=== PATIENT | female | born 1950 | race Caucasian/White ===

== ENCOUNTER → 2017-01-07 | Outpatient (CLI) | payer MEDICARE ==
--- NOTE | 2017-01-07 18:20 | WWHP ---
DATE OF SERVICE: 01/07/17 CHIEF COMPLAINT: The patient is here for her routine gynecological exam and mammogram. HISTORY OF PRESENT ILLNESS: This is a 66-year-old G2, P2, 0, 0, 1 with an LMP of 2009. The patient is without gynecological complaints. PAST MEDICAL HISTORY: Chronic hypertension, pre-diabetes and seasonal allergies. Medications: 1. Benicar 40 mg daily. 2. Aspirin 81 mg daily. 3. Zyrtec one daily. 4. Vitamin D 5000 units daily. ALLERGIES: No known drug allergies. 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 SOCIAL HISTORY: She denies tobacco, and has 0 to 2 alcoholic drinks per month. 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 FAMILY HISTORY: Unchanged from 2016 H&P. REVIEW OF SYSTEMS: Weight has been stable. She denies respiratory, cardiac or GI problems. She denies maltreatment or falling. : She does not have significant problems with urinary leakage. PHYSICAL EXAM: Blood pressure 117/76. Height 5 feet 3 inches. Weight 185 pounds. Temperature 98.0. Pulse 84. This is a well developed, heavy set white female who is alert and oriented times three in no acute distress. HEENT : is within normal limits. Neck is supple without mass or thyromegaly. Chest and lungs clear to auscultation. Heart is regular rate and rhythm. Breasts: Without mass or discharge. Axillary exam is negative for adenopathy. Back negative for CVA tenderness. Abdomen soft, nontender without palpable masses. Pelvic exam, external genitalia reveals mild atrophy without lesions. Vagina reveals mild atrophy without lesions. The cervix appears nulliparous and slightly stenotic secondary to atrophy. There is no evidence of prolapse. Uterus is mid position, non-gravid size and nontender. There are no palpable adnexal masses or tenderness. Rectovaginal exam negative for mass or tenderness. Negative for occult blood. Extremities nontender. IMPRESSION: A 66-year-old menopausal female with normal gynecological exam. PLAN: 1. Pap smear was performed. 2. Self breast examination was discussed. 3. Mammogram will be done today. 4. Bone density testing was done earlier this month through her primary care physician and results are pending. I have asked her to try to have a copy of this sent to me if possible. 5. Osteoporosis prevention was discussed. 6. She will return in one year. MEDARDO
--- NOTE | 2017-01-09 09:39 | MM ---
Reason for exam: screening (asymptomatic). Last mammogram was performed 1 year ago. History: Patient is postmenopausal and had first child at age 37. 2 benign excisional biopsies of the left breast. Physical Findings: A clinical breast exam by your physician is recommended on an annual basis and results should be correlated with mammographic findings. MG 3D Screening Mammo W/Cad Bilateral CC and MLO view(s) were taken. Prior study comparison: January 02, 2016, bilateral MG screening mammo w CAD. July 03, 2015, left breast MG 3d diag mammo w/cad LT. December 29, 2014, left breast MG work up mamm w CAD LT. The breast tissue is heterogeneously dense. This may lower the sensitivity of mammography. Finding #1: There is a 8 mm oval mass in the anterior, central position of the right breast. Finding #2: There are typically benign round calcifications in both breasts. 8mm round mass posterior outer left breast. New finding since January 02, 2016, July 03, 2015, and December 29, 2014. ASSESSMENT: Incomplete: need additional imaging evaluation, BI-RAD 0 RECOMMENDATION: Ultrasound of both breasts. [facility] will attempt to contact patient to return for ultrasound.
== END | disposition home or self-care (01) ==
LOC: WWCWWP 08:20
PROVIDERS: ATTEND Obstetrics & Gynecology
DX: Z12.31 Encounter for screening mammogram for malignant neoplasm of breast (principal)
CPT/HCPCS: 77063; G0202

== ENCOUNTER → 2017-01-22 | Outpatient (CLI) | payer MEDICARE ==
--- NOTE | 2017-01-22 08:32 | USB ---
Reason for exam: additional evaluation requested from abnormal screening. History: Patient is postmenopausal and had first child at age 37. 2 benign excisional biopsies of the left breast. Physical Findings: Nurse Summary: all soft, nodular, movable (nurse ts). US Breast Workup UMU Right breast ultrasound includes all four quadrants, the retroareolar region and axilla. Finding demonstrates a 0.8 x 0.6 x 0.4cm cystic lesion at 9 o'clock and a 0.5 x 0.7 x 0.4cm cystic lesion at the posterior nipple. Left breast ultrasound includes all four quadrants, the retroareolar region and axilla. Finding demonstrates a 0.5 x 0.5 x 0.4cm hypoechoic lesion at 1 o'clock. These results were verbally communicated with the patient and result sheet given to the patient on 01/22/17. ASSESSMENT: Probably benign, BI-RAD 3 RECOMMENDATION: Ultrasound of both breasts in 6 months.
== END | disposition home or self-care (01) ==
LOC: RADUSWWP 06:49
PROVIDERS: ATTEND Obstetrics & Gynecology
DX: R92.8 Other abnormal and inconclusive findings on diagnostic imaging of breast (principal)

== ENCOUNTER → 2017-07-23 | Outpatient (CLI) | payer MEDICARE ==
--- NOTE | 2017-07-23 08:12 | USB ---
Reason for exam: follow-up at short interval from prior study. History: Patient is postmenopausal and had first child at age 37. 2 benign excisional biopsies of the left breast. Physical Findings: Nurse did not find any significant physical abnormalities on exam. US Breast BILAT Right breast ultrasound includes all four quadrants, the retroareolar region and axilla. Finding demonstrates a 4 x 2 x 7mm oval, cystic lesion at 11 o'clock. The previous cyst 9 o'clock and subareolar right breast are no longer seen. Left breast ultrasound includes all four quadrants, the retroareolar region and axilla. Finding demonstrates a 6 x 4 x 5mm oval, cystic lesion at 1 o'clock seen on previous but now clearly cystic and a 5mm oval lymph node at 2 o'clock. 6 month follow up mammogram recommended to reassess the initially questioned mammographic finding. These results were verbally communicated with the patient and result sheet given to the patient on 07/23/17. ASSESSMENT: Probably benign, BI-RAD 3 RECOMMENDATION: Follow-up diagnostic mammogram of both breasts in 6 months.
== END | disposition home or self-care (01) ==
LOC: RADUSWWP 06:52
PROVIDERS: ATTEND Obstetrics & Gynecology
DX: R92.8 Other abnormal and inconclusive findings on diagnostic imaging of breast (principal)

== ENCOUNTER → 2018-01-13 | Outpatient (CLI) | payer MEDICARE ==
[2018-01-13 09:40] VITALS: BP 109/71; PULSE 77; TEMP 97.9; BMI 30.1
--- NOTE | 2018-01-13 10:26 | P.HPOB ---
History of Present Illness H&P Date: 01/13/18 Chief Complaint: The patient is here for her routine gynecologic exam and mammogram. This is a 67-year-old with an LMP of 2009. The patient is without gynecologic complaints and denies any postmenopausal bleeding. Review of Systems She has lost about 15 pounds over the last year. She attributes this to her diabetic diet after being diagnosed with type II diabetes. She denies respiratory or cardiac problems. G.I.: she has had occasional gas pains which she attributes to her diabetes medication. She denies maltreatment or problems with falling. : she denies any significant problems with urinary leakage. Past Medical History Past Medical History: Diabetes Mellitus (Type II diabetes), Hypertension, Osteoarthritis (OA) Additional Past Medical History / Comment(s): Vitamin D deficiency, anemia, allergic rhinitis, gastritis, focal asymetric breat tissue. 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 History of Any Multi-Drug Resistant Organisms: None Reported Past Surgical History: Breast Surgery (Biopsy times 2), Section (x2) Additional Past Surgical History / Comment(s): Colonoscopy 2010. 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 - Past Family History Brother(s) Family Medical History: Cancer (Multiple myeloma) Daughter(s) Additional Family Medical History / Comment(s): Hydrocephaly and at age 3. Mother Family Medical History: Myocardial Infarction ([place]) Father Family Medical History: Diabetes Mellitus Medications and Allergies Home Medications Medication Instructions Recorded Confirmed Type Aspirin 81 mg PO DAILY 12/11/17 01/13/18 History Canagliflozin/Metformin HCl 1 tab PO DAILY 12/11/17 01/13/18 History [Invokamet 50-1,000 mg Tablet] Cetirizine HCl [Zyrtec] 10 mg PO DAILY 12/11/17 01/13/18 History Cholecalciferol [Vitamin D3] 1 tab PO DAILY 12/11/17 01/13/18 History Olmesartan [Benicar] 40 mg PO DAILY 12/11/17 01/13/18 History Allergies Allergy/AdvReac Type Severity Reaction Status Date / Time No Known Allergies Allergy Verified 01/13/18 09:35 Exam Vital Signs Temp Pulse BP 01/13/18 09:36 97.9 F 77 109/71 Intake and Output 01/12/18 01/13/18 01/13/18 22:59 06:59 14:59 Other: Weight 77.111 kg Height 5'3", BMI 30.1. This is a well-developed well-nourished white female who is alert and oriented times 3 in no acute distress. HEENT: Within normal limits. NECK: Supple without mass or thyromegaly. CHEST AND LUNGS: Clear to auscultation. HEART: Regular rate and rhythm. BREASTS: Are without mass or discharge. AXILLARY EXAM: Negative for adenopathy. BACK: Negative for CVA tenderness. ABDOMEN: Soft, nontender, without palpable masses. PELVIC EXAM: Normal external genitalia with mild atrophy. Cervix and vagina appear normal with mild atrophy. There is no unusual discharge. There is no evidence of prolapse. The uterus is midposition, nongravid size and nontender. There are no palpable adnexal masses or tenderness. RECTAL EXAM: rectovaginal exam is negative for mass or tenderness and is negative for occult blood. EXTREMITIES: Nontender. IMPRESSION: 1. 67 year old menopausal female with normal gynecologic exam. PLAN: 1. Pap smear was deferred since she had a normal one last year. 2. Self breast awareness was discussed with the patient. 3. Diagnostic mammogram will be done today because of her abnormal one in 2017. 4. Osteoporosis prevention was discussed. She has brought in her bone density report [facility] [place] The bone density was normal. We will plan on repeating this again in the year 2023. 5. She does get flu shots in the fall. 6. She will return in one year.
--- NOTE | 2018-01-13 11:53 | MM ---
Reason for exam: additional evaluation requested from prior study. Last mammogram was performed 1 year ago. History: Patient is postmenopausal and had first child at age 37. 2 benign excisional biopsies of the left breast. Physical Findings: Dr. Chapman did not find any significant physical abnormalities on exam. MG 3D Diag Mammo W/Cad UMU Bilateral CC, MLO, and XCCL view(s) were taken. XCCM view(s) were taken of the left breast. Prior study comparison: January 07, 2017, bilateral MG 3d screening mammo w/cad. January 02, 2016, bilateral MG screening mammo w CAD. The breast tissue is heterogeneously dense. This may lower the sensitivity of mammography. Finding: There is a equal, irregular, indistinct architectural distortion in the inner quadrant, middle position of the left breast on XCCL view, not on XCCM view, which may be related to compression. New finding since January 07, 2017. These results were verbally communicated with the patient and result sheet given to the patient on 01/13/18. ASSESSMENT: Probably benign, BI-RAD 3 RECOMMENDATION: Follow-up diagnostic mammogram of the left breast in 6 months.
== END | disposition home or self-care (01) ==
LOC: WWCWWP 08:52
PROVIDERS: ATTEND Obstetrics & Gynecology
DX: R92.8 Other abnormal and inconclusive findings on diagnostic imaging of breast (principal)
CPT/HCPCS: 77066; G0279; 77062

== ENCOUNTER → 2018-06-25 | Outpatient (CLI) | payer MEDICARE ==
--- NOTE | 2018-06-25 11:14 | EST ---
EXERCISE STRESS AGE: 67 SEX: F HT: 63" WT: 164 PROTOCOL: Clayton Stress Test STAGE: 2 DURATION OF EXERCISE: 4:00 HEART RATE REST: 93 BLOOD PRESSURE REST: 108/65 MAXIMUM HEART RATE ACHIEVED: 145 MAXIMUM BLOOD PRESSURE: 261/50 85% MPHR: 131 100% MPHR: 154 METS: 5.8 INDICATIONS: Family history of CAD. CLINICAL INFORMATION: Baseline EKG shows sinus rhythm, normal axis, normal intervals. Patient exercised on Clayton protocol for a total of 4 minutes achieving 5 METS, 85% of predicted maximal heart rate without chest pain. Patient became short of breath and the stress test had to be stopped. She had [address]-segment depression in the inferolateral leads. CONCLUSION: 1. Poor exercise tolerance. 2. Abnormal stress test by EKG criteria. CAROLYN / BOBBYN: [id number] /
== END | disposition home or self-care (01) ==
LOC: RADNMMAIN 08:51
PROVIDERS: ATTEND Family Medicine
DX: Z13.6 Encounter for screening for cardiovascular disorders (principal); R94.39 Abnormal result of other cardiovascular function study; Z82.49 Family history of ischemic heart disease and other diseases of the circulatory system
CPT/HCPCS: 93017

== ENCOUNTER → 2018-07-15 | Outpatient (CLI) | payer MEDICARE ==
--- NOTE | 2018-07-15 08:46 | MM ---
Reason for exam: follow-up at short interval from prior study. Last mammogram was performed 6 months ago. History: Patient is postmenopausal and had first child at age 37. 2 benign excisional biopsies of the left breast. Physical Findings: Nurse did not find any significant physical abnormalities on exam. MG 3D Diag Mammo W/Cad LT CC and MLO view(s) were taken of the left breast. Prior study comparison: January 13, 2018, bilateral MG 3d diag mammo w/cad UMU. January 07, 2017, bilateral MG 3d screening mammo w/cad. The breast tissue is heterogeneously dense. This may lower the sensitivity of mammography. There is no discrete abnormality. These results were verbally communicated with the patient and result sheet given to the patient on 07/15/18. ASSESSMENT: Negative, BI-RAD 1 RECOMMENDATION: Routine screening mammogram of both breasts in 6 months. Back on schedule.
== END | disposition home or self-care (01) ==
LOC: RADMAMWWP 06:54
PROVIDERS: ATTEND Obstetrics & Gynecology
DX: R92.8 Other abnormal and inconclusive findings on diagnostic imaging of breast (principal)
CPT/HCPCS: 77065; G0279; 77061

== ENCOUNTER → 2019-02-24 | Outpatient (CLI) | payer MEDICARE ==
[2019-02-24 07:59] VITALS: BP 126/79; PULSE 97; RESP 18; TEMP 98.1; BMI 31.6
--- NOTE | 2019-02-24 08:33 | P.HPOB ---
History of Present Illness H&P Date: 02/24/19 Chief Complaint: The patient is here for her routine gynecologic exam and ma mmogram. This is a 68-year-old 001 with an LMP of 2009. The patient is without gynecologic complaints. Review of Systems She has gained about 9 pounds over the last year. She denies respiratory, cardiac and G.I. problems. She denies maltreatment or problems with falling. : she denies any significant problems with urinary leakage. Past Medical History Past Medical History: Diabetes Mellitus, Hypertension, Osteoarthritis (OA) Additional Past Medical History / Comment(s): Type 2 diabetes. Anemia, allergic rhinitis, gastritis, focal asymetric breat tissue. 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 History of Any Multi-Drug Resistant Organisms: None Reported Past Surgical History: Breast Surgery, Section Additional Past Surgical History / Comment(s): Breast biopsy 2. 2. Colonoscopy 2010. 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 - Past Family History Brother(s) Family Medical History: Cancer Additional Family Medical History / Comment(s): Multiple myeloma. . Daughter(s) Additional Family Medical History / Comment(s): Hydrocephaly and at age 3. Mother Family Medical History: Myocardial Infarction ([place]) Father Family Medical History: Diabetes Mellitus Medications and Allergies Home Medications Medication Instructions Recorded Confirmed Type Aspirin 81 mg PO DAILY 12/11/17 02/24/19 History Cetirizine HCl [Zyrtec] 10 mg PO DAILY 12/11/17 02/24/19 History Cholecalciferol [Vitamin D3] 5 tab PO DAILY 12/11/17 02/24/19 History Olmesartan [Benicar] 40 mg PO DAILY 12/11/17 02/24/19 History Allergies Allergy/AdvReac Type Severity Reaction Status Date / Time No Known Allergies Allergy Verified 02/24/19 07:59 Exam Vital Signs Temp Pulse Resp BP Pulse Ox 02/24/19 07:52 98.1 F 97 18 126/79 96 Intake and Output 02/23/19 02/24/19 02/24/19 22:59 06:59 14:59 Other: Weight 81.193 kg Height 5 feet 3 inches, weight 179 pounds, BMI 31.7. This is a well-developed well-nourished white female who is alert and oriented times 3 in no acute distress. HEENT: Within normal limits. NECK: Supple without mass or thyromegaly. CHEST AND LUNGS: Clear to auscultation. HEART: Regular rate and rhythm. BREASTS: Are without mass or discharge. AXILLARY EXAM: Negative for adenopathy. BACK: Negative for CVA tenderness. ABDOMEN: Soft, nontender, without palpable masses. PELVIC EXAM: Normal external genitalia with mild atrophy. Cervix and vagina appear normal with mild atrophy. The cervix appears nulliparous. There is no unusual discharge. There is no evidence of prolapse. The uterus is midposition, nongravid size and nontender. There are no palpable adnexal masses or tenderness. RECTAL EXAM: Rectovaginal exam is negative for mass or tenderness and is negative for occult blood. EXTREMITIES: Nontender. IMPRESSION: 1. 68-year-old menopausal female with normal gynecologic exam. PLAN: 1. Pap smear was performed. If this Pap smear is negative we will plan on di scontinuing Pap smears since she has had no history of cervical problems and has had adequate screening. 2. Self breast awareness was discussed with the patient. 3. Screening mammogram will be done today. 4. She states she recently had a bone density test done through her primary care physician. I have asked her to try to get me the results from this test. 5. He did receive her flu shot this fall. 6. The patient was advised to return in 1-2 years for her well woman examination.
--- NOTE | 2019-02-25 15:00 | MM ---
Reason for exam: screening (asymptomatic). Last mammogram was performed 7 months ago. History: Patient is postmenopausal and had first child at age 37. 2 benign excisional biopsies of the left breast. Physical Findings: A clinical breast exam by your physician is recommended on an annual basis and results should be correlated with mammographic findings. MG 3D Screening Mammo W/Cad Bilateral CC and MLO view(s) were taken. Prior study comparison: July 15, 2018, left breast MG 3d diag mammo w/cad LT. January 13, 2018, bilateral MG 3d diag mammo w/cad UMU. The breast tissue is heterogeneously dense. This may lower the sensitivity of mammography. No suspicious abnormality on the right breast. Multifocal left breast distortion. Middle depth medially on CC 17/69 and central as well as lateral at middle depth on CC 30/69 MLO correlate inferior for one site. No correlate for other two sites. ASSESSMENT: Incomplete: need additional imaging evaluation, BI-RAD 0 RECOMMENDATION: Special view mammogram and ultrasound of the left breast. [facility] will attempt to contact patient to return for supplemental views and ultrasound.
== END | disposition home or self-care (01) ==
LOC: WWCWWP 07:41
PROVIDERS: ATTEND Obstetrics & Gynecology
DX: Z12.31 Encounter for screening mammogram for malignant neoplasm of breast (principal)
CPT/HCPCS: 77063; 77067

== ENCOUNTER → 2019-03-09 | Outpatient (CLI) | payer MEDICARE ==
--- NOTE | 2019-03-09 13:05 | MM ---
Reason for exam: additional evaluation requested from abnormal screening. Last mammogram was performed less than 1 month ago. History: Patient is postmenopausal and had first child at age 37. 2 benign excisional biopsies of the left breast. Physical Findings: Nurse did not find any significant physical abnormalities on exam. MG 3D Work Up W/Cad LT Spot compression CC, spot compression MLO, and LM view(s) were taken of the left breast. Prior study comparison: February 24, 2019, bilateral MG 3d screening mammo w/cad. July 15, 2018, left breast MG 3d diag mammo w/cad LT. The breast tissue is heterogeneously dense. This may lower the sensitivity of mammography. Lateral distortion persists although is similar back to 2017 and may relate to prior excision. Precautionary ultrasound. These results were verbally communicated with the patient and result sheet given to the patient on 03/09/19. ASSESSMENT: Incomplete: need additional imaging evaluation, BI-RAD 0 RECOMMENDATION: Ultrasound of the left breast.
--- NOTE | 2019-03-09 13:09 | USB ---
Reason for exam: additional evaluation requested from abnormal screening. History: Patient is postmenopausal and had first child at age 37. 2 benign excisional biopsies of the left breast. US Breast Workup LT Left complete breast ultrasound includes all four quadrants, the retroareolar region and axilla. Finding demonstrates a 0.6 x 0.5 x 0.3cm cystic lesion at 1 o'clock, normal appearing nodes at 1 o'clock, a 0.6 x 0.3 x 0.3cm hypoechoic lesion at 6 o'clock, biopsy recommended, taller than wide, correlates with screening mammogram and a a 0.4 x 0.3 x 0.2cm mixed lesion at 8 o'clock, 6 month follow up pending biopsy results. These results were verbally communicated with the patient and result sheet given to the patient on 03/09/19. ASSESSMENT: Suspicious, BI-RAD 4 RECOMMENDATION: Ultrasound core biopsy of the left breast. Called Dr. Chapman's office with mammographic findings and has scheduled an appointment for the patient for 04/22/19 at 9:[address] Iqbal. Biopsy scheduled for 04/22/19 at 11:30. PRELIMINARY REPORT CALLED AND FAXED TO DR. IQBAL ON 03/09/19.
== END | disposition home or self-care (01) ==
LOC: RADMAMWWP 10:04
PROVIDERS: ATTEND Obstetrics & Gynecology
DX: R92.8 Other abnormal and inconclusive findings on diagnostic imaging of breast (principal)
CPT/HCPCS: 77065; 76641; G0279; 77061

== ENCOUNTER → 2019-04-22 | Outpatient (CLI) | payer MEDICARE ==
[2019-04-22 09:08] VITALS: BP 113/75; PULSE 83; RESP 18; TEMP 97.8
--- NOTE | 2019-04-22 09:45 | P.GSHP ---
History of Present Illness H&P Date: 04/22/19 Chief Complaint: abnormal left breast ultrasound The patient is a 68 year old seen in consultation for DR. Walsh who had a routine screening mammogram performed on 02-24-19 was noted to have a change in the left breast. Additional views were obtained on 03-09-19 and an ultrasound as well. A 0.6 cm lesion was noted at hte 6 OClock position and a biopsy was recommended. She has had two open biopsies in the past in the left breast. These were both benign, one was a blocked milk duct. The other she does not know the results. She does not feel any lumps or nodules in either breast. She has had no recent infection or trauma to the breast. No pain in her breast. She has no nipple discharge or skin changes in her breast. Family History: brother: multiple myloma brother: prostate cancer father: prostate cancer maternal great aunt: ovarian cancer Hormonal: menarche: 14 , breast fed: yes: first born at 39 menopause: 55 BCP: none hormones: none Past Surgical History: 1. twice 2. open breast biopsy twice Medical History: diabetes HTN Social History: smoke: none alcohol: occasional drugs: none - Constitutional Constitutional: Denies chills, Denies fever - EENT Comment: wears glasses, epi-retinal membrane bilateral eyes, cataracts bilateral following Ears: deny: decreased hearing, tinnitus Ears, nose, mouth and throat: Denies headache, Denies sore throat - Breasts Breasts: bilateral: as per HPI - Cardiovascular Cardiovascular: Reports high blood pressure, Denies chest pain, Denies shortness of breath - Respiratory Respiratory: Denies cough, Denies 7 - Gastrointestinal Comment: metformin some days cause diarrhea or constipation Gastrointestinal: Denies abdominal pain, Denies diarrhea, Denies nausea, Denies vomiting - Genitourinary (Female) Genitourinary: Denies dysuria, Denies hematuria - Menstruation Menstruation: Reports postmenopausal - Musculoskeletal Musculoskeletal: Denies myalgias - Integumentary Integumentary: Denies pruritus, Denies rash - Neurological Neurological: Denies numbness, Denies weakness - Psychiatric Psychiatric: Denies anxiety, Denies depression - Endocrine Comment: diabetes - Hematologic/Lymphatic Comment: baby aspirin - Allergic/Immunologic Allergic/Immunologic: Reports seasonal allergies Past Medical History Past Medical History: Diabetes Mellitus, Hypertension, Osteoarthritis (OA) Additional Past Medical History / Comment(s): Type 2 diabetes. Anemia, allergic rhinitis, gastritis, focal asymetric breat tissue. 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 History of Any Multi-Drug Resistant Organisms: None Reported Past Surgical History: Breast Surgery, Section Additional Past Surgical History / Comment(s): Breast biopsy 2. 2. Colonoscopy 2010. Past Anesthesia/Blood Transfusion Reactions: Postoperative Nausea & Vomiting (PONV) Past Psychological History: No Psychological Hx Reported Smoking Status: Never smoker Past Alcohol Use History: Rare Additional Past Alcohol Use History / Comment(s): beer/ wine Past Drug Use History: None Reported - Past Family History Brother(s) Family Medical History: Cancer Additional Family Medical History / Comment(s): Multiple myeloma. . Daughter(s) Additional Family Medical History / Comment(s): Hydrocephaly and at age 3. Mother Family Medical History: Myocardial Infarction ([place]) Father Family Medical History: Diabetes Mellitus Medications and Allergies Home Medications Medication Instructions Recorded Confirmed Type Aspirin 81 mg PO DAILY 12/11/17 04/22/19 History Cetirizine HCl [Zyrtec] 10 mg PO DAILY 12/11/17 04/22/19 History Cholecalciferol [Vitamin D3] 5 tab PO DAILY 12/11/17 04/22/19 History Olmesartan [Benicar] 40 mg PO DAILY 12/11/17 04/22/19 History metFORMIN HCL [Glucophage] 500 mg PO BID 04/12/19 04/22/19 History Allergies Allergy/AdvReac Type Severity Reaction Status Date / Time No Known Allergies Allergy Verified 04/22/19 09:01 Surgical - Exam Vital Signs Temp Pulse Resp BP Pulse Ox 97.8 F 83 18 113/75 98 04/22/19 09:05 04/22/19 09:05 04/22/19 09:05 04/22/19 09:05 04/22/19 09:05 BMI 30.1 - General well developed, well nourished, no distress - Eyes normal ocular movement - ENT normal pinna, normal nares, no hearing loss, no congestion - Neck no masses, trachea midline, no lymphadectomy, no venous distension - Respiratory normal expansion, normal respiratory effort, clear to percussion, clear to auscultation - Cardiovascular Rhythm: regular Heart Sounds: normal: S1, S2 - Abdomen Abdomen: soft, non tender, bowel sounds, no guarding, no rigid, no rebound - Integumentary normal turgor - Neurologic no disoriented, no combative - Musculoskeletal normal gait, normal posture - Psychiatric oriented to time, oriented to person, oriented to place, speech is normal, memory intact breast exam: bra size: 34B right breast: multipositional exam no dominate masses or nodules of concern right axilla: no adenopathy of concdrn left breast: well healed scars from prior boipsy, no dominate masses left axilla: no adenopathy of concern Results mammogram and ultrasound results reviewed Assessment and Plan Assessment: Impression: 1. abnormal mammogram and ultrasound 2. prior left breast biopsy twice 3. HTN 4. diabetes 5. family history of cancer Plan: 1. ultrasound core biopsy of the left breast at 6 O Cock 2. follow up after core biopsy The risk and benefits of the procedure were discussed with the patient. She and her understand and wish to proceed. CC: Encounter 30 minutes, > 50% spent in planning and counselling.
--- NOTE | 2019-04-22 18:02 | P.PN ---
Progress Note - Text Progress Note Date: 04/22/19 Diana underwent pre-biopsy imaging of the left breast. There was noted to be at the 6 o'clock position 2 small cysts measuring up to 4 mm. Biopsy was discontinued and six-month follow-up is recommended. The plan is six-month follow-up left breast ultrasound and mammogram and follow-up Dr. White at that time. CC: Dr. Walsh
== END ==
LOC: WWCWWP 08:42
PROVIDERS: ATTEND Surgery
DX: Z53.9 Procedure and treatment not carried out, unspecified reason (principal)

== ENCOUNTER → 2019-04-22 | Day surgery (SDC) | payer MEDICARE ==
[2019-04-22 11:04] VITALS: BP 117/75; PULSE 71; RESP 16; TEMP 97.7
--- NOTE | 2019-04-22 13:03 | USB ---
Ultrasound discontinued breast biopsy left HISTORY: Hypoechoic lesion left 6:00 position posterior to the nipple Pre-Biopsy imaging was performed and noted at the left 6:00 position are 2 small cysts in a snowman c onfiguration measuring up to 4 mm. Biopsy was therefore discontinued and six-month follow-up will be obtained. This was discussed with the patient at length. IMPRESSION: Probably benign BI-RADS 3 Recommendation: 6 month follow-up left-sided ultrasound and mammography
== END ==
LOC: RADUSWWP 09:59
PROVIDERS: ATTEND Surgery
DX: R92.8 Other abnormal and inconclusive findings on diagnostic imaging of breast (principal)

== ENCOUNTER → 2019-10-20 | Outpatient (CLI) | payer MEDICARE ==
--- NOTE | 2019-10-21 10:19 | MM ---
Reason for exam: follow-up at short interval from prior study. Last mammogram was performed 7 months ago. History: Patient is postmenopausal and had first child at age 37. US discontinued breast bx LT of the left breast, April 22, 2019. 2 benign excisional biopsies of the left breast. Physical Findings: Nurse did not find any significant physical abnormalities on exam. MG 3D Diag Mammo W/Cad LT CC, MLO, and XCCL view(s) were taken of the left breast. Prior study comparison: March 09, 2019, left breast MG 3d work up w/cad LT. February 24, 2019, bilateral MG 3d screening mammo w/cad. The breast tissue is heterogeneously dense. This may lower the sensitivity of mammography. Benign appearing calcifications in the left breast. There is chronic nodularity in the left breast. No significant new findings when compared with previous films. These results were verbally communicated with the patient and result sheet given to the patient on 10/20/19. ASSESSMENT: Benign, BI-RAD 2 RECOMMENDATION: Follow-up diagnostic mammogram of both breasts in 6 months.
--- NOTE | 2019-10-21 10:20 | USB ---
Reason for exam: follow-up at short interval from prior study. History: Patient is postmenopausal and had first child at age 37. US discontinued breast bx LT of the left breast, April 22, 2019. 2 benign excisional biopsies of the left breast. US Breast Limited LT Left limited breast ultrasound including focal area of concern, retroareolar and axilla demonstrates a 0.3 x 0.3 x 0.3cm lesion too small to characterize at 6 o'clock, suspicious, biopsy recommended. These results were verbally communicated with the patient and result sheet given to the patient on 10/20/19. ASSESSMENT: Suspicious, BI-RAD 4 RECOMMENDATION: Ultrasound core biopsy of the left breast.
== END | disposition home or self-care (01) ==
LOC: RADMAMWWP 13:20
PROVIDERS: ATTEND Surgery
DX: R92.8 Other abnormal and inconclusive findings on diagnostic imaging of breast (principal)
CPT/HCPCS: 77065; 76642; G0279; 77061

== ENCOUNTER → 2019-10-21 | Outpatient (CLI) | payer MEDICARE ==
[2019-10-21 09:32] VITALS: BP 134/75; PULSE 92; RESP 20; TEMP 97.9
--- NOTE | 2019-10-21 09:57 | P.PN ---
Subjective Progress Note Date: 10/21/19 Principal diagnosis: abnormal left breast ultrasound The patient is a 68 year old seen in consultation for DR. Walsh who had a routine screening mammogram performed on 02-24-19 was noted to have a change in the left breast. Additional views were obtained on 03-09-19 and an ultrasound as well. A 0.6 cm lesion was noted at the 6 OClock position and a biopsy was recommended. She has had two open biopsies in the past in the left breast. These were both benign, one was a blocked milk duct. The other she does not know the results. She does not feel any lumps or nodules in either breast. She has had no recent infection or trauma to the breast. No pain in her breast. She has no nipple discharge or skin changes in her breast. She presented on [id number] for an ultrasound-guided core biopsy of the left breast. Pre-and biopsy imaging was performed and the area of concern at 6:00 was not felt to be as worrisome. Therefore the biopsy was discontinued and a six-month follow-up was recommended. She had a repeat left breast mammogram and ultrasound done on . The films were reviewed with Dr. Parra from radiology. He felt that on ultrasound the area of concern is 6:00 was worrisome and should undergo biopsy. No specific lesion of concern was identified in the left breast mammogram. Family History: brother: multiple myloma brother: prostate cancer father: prostate cancer maternal great aunt: ovarian cancer Hormonal: menarche: 14 , breast fed: yes: first born at 39 menopause: 55 BCP: none hormones: none Past Surgical History: 1. twice 2. open breast biopsy twice Medical History: diabetes HTN Social History: smoke: none alcohol: occasional drugs: none - Constitutional Constitutional: Denies chills, Denies fever - EENT Comment: wears glasses, epi-retinal membrane bilateral eyes, cataracts bilateral following Ears: deny: decreased hearing, tinnitus Ears, nose, mouth and throat: Denies headache, Denies sore throat - Breasts Breasts: bilateral: as per HPI - Cardiovascular Cardiovascular: Reports high blood pressure, Denies chest pain, Denies shortness of breath - Respiratory Respiratory: Denies cough - Gastrointestinal Comment: metformin some days caused diarrhea or constipation, stopped metformin and is now on Jardianc Gastrointestinal: Denies abdominal pain, Denies diarrhea, Denies nausea, Denies vomiting - Genitourinary (Female) Genitourinary: Denies dysuria, Denies hematuria - Menstruation Menstruation: Reports postmenopausal - Musculoskeletal Musculoskeletal: Denies myalgias - Integumentary Integumentary: Denies pruritus, Denies rash - Neurological Neurological: Denies numbness, Denies weakness - Psychiatric Psychiatric: Denies anxiety, Denies depression - Endocrine Comment: diabetes - Hematologic/Lymphatic Comment: baby aspirin - Allergic/Immunologic Allergic/Immunologic: Reports seasonal allergies Objective - Vital Signs Vital signs: Vital Signs Temp 97.9 F 10/21/19 09:27 Pulse 92 10/21/19 09:27 Resp 20 10/21/19 09:27 BP 134/75 10/21/19 09:27 Pulse Ox 99 10/21/19 09:27 Intake & Output 10/20/19 10/21/19 10/21/19 18:59 06:59 18:59 Weight 80.739 kg - Exam BMI 30.1 - Constitutional General appearance: Present: average body habitus - EENT Eyes: Present: EOMI ENT: Present: hearing grossly normal - Neck Neck: Present: normal ROM - Respiratory Respiratory: bilateral: CTA - Cardiovascular Rhythm: regular Heart sounds: normal: S1, S2 - Gastrointestinal General gastrointestinal: Present: normal bowel sounds, soft - Integumentary Integumentary: Present: normal turgor - Musculoskeletal Musculoskeletal: Present: gait normal - Psychiatric Psychiatric: Present: A&O x's 3, appropriate affect, intact judgment & insight - Additional findings Additional findings: Breast exam: BRA 34B inspection: no nipple inversion, well healed scars from prior biopsy ptosis grade 2/3 palpation: right breast: Multi-positional exam fibrocystic changes, no dominant masses or nodules of concern Right axilla: No adenopathy of concern Left breast: Multiple positional exam no dominant masses or nodules of concern, fibrocystic changes Left axilla: No adenopathy of concern Assessment and Plan Assessment: Impression: 1. Ultrasound abnormality left breast reviewed with radiology Dr. Parra recommended ultrasound-guided core biopsy 2. Mammogram left breast reviewed with Dr. Parra felt to be stable 3. Fibrocystic breast changes 4. Well-controlled diabetes Plan: 1. Ultrasound core biopsy left breast follow-up after the biopsy Cc: Dr. Walsh, [place] encounter 25 minutes, > 50% of time in planning and counselling
== END | disposition home or self-care (01) ==
LOC: WWCWWP 09:22
PROVIDERS: ATTEND Surgery
DX: Z53.9 Procedure and treatment not carried out, unspecified reason (principal)

== ENCOUNTER → 2019-10-27 | Day surgery (SDC) | payer MEDICARE ==
[2019-10-27 12:53] VITALS: RESP 16
[2019-10-27 14:12] VITALS: BP 146/72; PULSE 81; TEMP 98.1
--- NOTE | 2019-10-27 14:30 | USB ---
EXAMINATION TYPE: US biopsy breast VAD LT, MG post procedure diagnostic mammo LT wo CAD DATE OF EXAM: 10/27/2019 CLINICAL HISTORY: 69-year-old female R92.8 ABN MAMMO. TECHNIQUE: Ultrasound guided core biopsy of the left breast. COMPARISON: 03/09/2019, 04/22/2019, 10/20/2019, 02/24/2019 FINDINGS: The procedure of ultrasound guided core biopsy was explained to the patient. Benefits, alternatives, and risks were discussed. An informed consent was then obtained. The patient was placed in supine positioning for imaging and for the procedure. The overlying skin was prepped and draped in usual sterile fashion. Lidocaine was used as anesthetic into the skin and subcutaneous tissue up to area of concern in the 6:00 position of the left breast adjacent to what appears to be a tiny 3 mm cyst. The target lesion irregular but small and 4 mm. Under ultrasound guidance, a 13-gauge vacuum-assisted mammotome Elite biopsy gun device was used to obtain 3 core samples. Following this, a coil clip was left in lesion. The patient tolerated the procedure well without any immediate complication. The patient was kept in the radiology department for short stay after the procedure and then discharged home in stable condition. Postprocedure mammogram shows the clip at the 6 to 7:00 position. IMPRESSION: Successful, uncomplicated ultrasound guided core biopsy tiny 4 mm area of concern in the 6:00 left breast; full pathology results to follow. Pathology Results: Benign LEFT BREAST, ULTRASOUND GUIDED CORE BIOPSY: Fibrocystic changes including fibrosis, cysts, mild usual type ductal hyperplasia and rare microcalcifications. Recommendation Follow up ultrasound of the left breast in 6 months. MEDARDO
== END ==
LOC: RADUSWWP 11:49
PROVIDERS: ATTEND Surgery
DX: N60.12 Diffuse cystic mastopathy of left breast (principal); N62 Hypertrophy of breast; R92.0 Mammographic microcalcification found on diagnostic imaging of breast
CPT/HCPCS: 88305; 77065; 19083; A4648; J2001

== ENCOUNTER → 2019-11-05 | Outpatient (CLI) | payer MEDICARE ==
[2019-11-05 13:41] VITALS: BP 110/68; PULSE 79; RESP 18; TEMP 98.3
--- NOTE | 2019-11-05 13:54 | P.PN ---
Subjective Progress Note Date: 11/05/19 Principal diagnosis: Fibrocystic breast changes Diana is a 69-year-old white female status post ultrasound-guided core biopsy on . Pathology was fibrocystic changes including fibrosis, cysts, mild ductal hyperplasia and rare microcalcifications. This was felt to be concordant. She has no complaints related to the biopsy. Objective - Vital Signs Vital signs: Vital Signs Temp 98.3 F 11/05/19 13:36 Pulse 79 11/05/19 13:36 Resp 18 11/05/19 13:36 BP 110/68 11/05/19 13:36 Pulse Ox 97 11/05/19 13:36 Intake & Output 11/04/19 11/05/19 11/05/19 18:59 06:59 18:59 Weight 80.739 kg - Exam BMI 31.5 - Constitutional General appearance: Present: obese - EENT Eyes: Present: EOMI ENT: Present: hearing grossly normal - Neck Neck: Present: normal ROM - Respiratory Respiratory: bilateral: CTA - Cardiovascular Rhythm: regular Heart sounds: normal: S1, S2 - Integumentary Integumentary Comment(s): no evidence of infection or hematoma Integumentary: Present: normal turgor - Musculoskeletal Musculoskeletal: Present: gait normal - Psychiatric Psychiatric: Present: A&O x's 3, appropriate affect, intact judgment & insight Assessment and Plan Assessment: Impression: 1. Patient status post ultrasound-guided core biopsy of the left breast/pathology concordant and benign Plan: 1. Repeat left breast mammogram and ultrasound in 6 months with physician exam at that time CC: Dr. Walsh encounter 15 minutes > 50% of time on planning and counselling
== END | disposition home or self-care (01) ==
LOC: WWCWWP 13:09
PROVIDERS: ATTEND Surgery
DX: Z53.9 Procedure and treatment not carried out, unspecified reason (principal)

== ENCOUNTER → 2020-02-29 | Outpatient (CLI) | payer MEDICARE ==
[2020-02-29 08:08] VITALS: BP 106/68; PULSE 91; RESP 18; TEMP 98.4
--- NOTE | 2020-02-29 08:37 | P.HPOB ---
History of Present Illness H&P Date: 02/29/20 Chief Complaint: The patient is here for her routine gynecologic exam and ma mmogram. This is a 69-year-old with an LMP of 2009. The patient is without gynecologic complaints. She underwent a breast biopsy on the left side in October of this year and this was benign. She sees Dr. Christopher Callaway for this. Review of Systems Her weight has been stable. She denies respiratory, cardiac and G.I. problems. She denies maltreatment or problems with falling. : she denies any significant problems with urinary leakage. Past Medical History Past Medical History: Diabetes Mellitus, Hypertension, Osteoarthritis (OA) Additional Past Medical History / Comment(s): Type 2 diabetes. Anemia, allergic rhinitis, gastritis, focal asymetric breast tissue. 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 History of Any Multi-Drug Resistant Organisms: None Reported Past Surgical History: Breast Surgery, Section Additional Past Surgical History / Comment(s): Left breast benign biopsy 2, C- section 2, Colonoscopy 2010 Past Anesthesia/Blood Transfusion Reactions: Family History of Problems w/ Anesthesia, Motion Sickness, Postoperative Nausea & Vomiting (PONV) Past Psychological History: No Psychological Hx Reported Smoking Status: Never smoker Past Alcohol Use History: Occasional (One per month) Additional Past Alcohol Use History / Comment(s): beer/ wine Past Drug Use History: None Reported Additional History: 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 - Past Family History Brother(s) Family Medical History: Cancer Additional Family Medical History / Comment(s): Multiple myeloma. . Daughter(s) Additional Family Medical History / Comment(s): Hydrocephaly and at age 3. Mother Family Medical History: Myocardial Infarction ([place]) Father Family Medical History: Diabetes Mellitus Medications and Allergies Home Medications Medication Instructions Recorded Confirmed Type Aspirin 81 mg PO DAILY 12/11/17 02/29/20 History Cetirizine HCl [Zyrtec] 10 mg PO DAILY 12/11/17 02/29/20 History Cholecalciferol [Vitamin D3] 5 tab PO DAILY 12/11/17 02/29/20 History Olmesartan [Benicar] 40 mg PO DAILY 12/11/17 02/29/20 History Empagliflozin [Jardiance] 25 mg PO DAILY 10/21/19 02/29/20 History Vit C/E/Zn/Coppr/Lutein/Zeaxan 1 each PO DAILY 02/29/20 02/29/20 History [Preservision Areds 2 Softgel] Allergies Allergy/AdvReac Type Severity Reaction Status Date / Time No Known Allergies Allergy Verified 02/29/20 07:59 Exam Vital Signs Temp Pulse Resp BP Pulse Ox 02/29/20 08:01 98.4 F 91 18 106/68 91 L Intake and Output 02/28/20 02/29/20 02/29/20 22:59 06:59 14:59 Other: Weight 82.1 kg Height 5 feet 3 inches, weight 181 pounds, BMI 32.1. This is a well-developed well-nourished white female who is alert and oriented times 3 in no acute distress. HEENT: Within normal limits. NECK: Supple without mass or thyromegaly. CHEST AND LUNGS: Clear to auscultation. HEART: Regular rate and rhythm. BREASTS: Are without mass or discharge. AXILLARY EXAM: Negative for adenopathy. BACK: Negative for CVA tenderness. ABDOMEN: Soft, nontender, without palpable masses. PELVIC EXAM: Normal external genitalia with mild atrophy. Cervix and vagina appear normal mild atrophy. There is no unusual discharge. There is no evidence of prolapse. The uterus is midposition, nongravid size and nontender. There are no palpable adnexal masses or tenderness. RECTAL EXAM: Rectovaginal exam is negative for mass or tenderness and is negative for occult blood. EXTREMITIES: Nontender. IMPRESSION: 1. 69-year-old menopausal female with normal gynecologic exam. PLAN: 1. Pap smears have been discontinued. She has been adequately screened with no history of previous cervical problems. 2. Self breast awareness was discussed with the patient. 3. Diagnostic mammogram is scheduled for March of this year and she has an order slip from Dr. Christopher Callaway. 4. Osteoporosis prevention was discussed. I have stressed the importance of adequate calcium, vitamin D and regular exercise. Recommended amounts of calcium and vitamin D were also discussed. We will plan on repeating bone density testing approximate 2023. 5. She did receive her flu shot recently. 6. The patient was advised to return in 1-2 years for her well woman examination.
== END | disposition home or self-care (01) ==
LOC: WWCWWP 07:48
PROVIDERS: ATTEND Obstetrics & Gynecology
DX: Z53.9 Procedure and treatment not carried out, unspecified reason (principal)

== ENCOUNTER → 2020-03-13 | Outpatient (CLI) | payer MEDICARE ==
--- NOTE | 2020-03-13 10:53 | MM ---
Reason for exam: additional evaluation requested from prior study. Last mammogram was performed 4 months ago. History: Patient is postmenopausal and had first child at age 37. Benign US biopsy breast VAD LT of the left breast, October 27, 2019. US discontinued breast bx LT of the left breast, April 22, 2019. 2 benign excisional biopsies of the left breast. Physical Findings: Nurse did not find any significant physical abnormalities on exam. MG 3D Diag Mammo W/Cad UMU Bilateral CC and MLO view(s) were taken. Prior study comparison: October 20, 2019, left breast MG 3d diag mammo w/cad LT. The breast tissue is heterogeneously dense. This may lower the sensitivity of mammography. There are benign appearing round calcifications in the right breast. Previous mammotome biopsy in the left breast. There is no discrete abnormality. These results were verbally communicated with the patient and result sheet given to the patient on 03/13/20. ASSESSMENT: Benign, BI-RAD 2 RECOMMENDATION: Routine screening mammogram of both breasts in 1 year.
== END | disposition home or self-care (01) ==
LOC: RADMAMWWP 10:06
PROVIDERS: ATTEND Surgery
DX: R92.8 Other abnormal and inconclusive findings on diagnostic imaging of breast (principal)
CPT/HCPCS: 77066; G0279; 77062

== ENCOUNTER → 2020-03-16 | Outpatient (CLI) | payer MEDICARE ==
[2020-03-16 09:49] VITALS: BP 110/71; PULSE 86; RESP 16; TEMP 98
--- NOTE | 2020-03-16 10:08 | P.PN ---
Subjective Progress Note Date: 03/16/20 Principal diagnosis: fibrocystic breast changes The patient is a 69 year old seen initially in consultation for DR. Walsh who had a routine screening mammogram performed on 02-24-19 was noted to have a change in the left breast. Additional views were obtained on 03-09-19 and an ultrasound as well. A 0.6 cm lesion was noted at the 6 OClock position and a biopsy was recommended. She has had two open biopsies in the past in the left breast. These were both benign, one was a blocked milk duct. The other she does not know the results. She underwent an ultrasound core biopsy on 10-27-19. This was benign, concordant. She had a bilateral mammogram on 03-13-20 which was Benign BIRAD 2. She is not complaining of any lumps masses or nodules in her breast. She is not complaining of any nipple discharge or skin changes. She has had 2 open breast biopsies in the past. She has not had any trauma or infection in the breast. Family History: brother: multiple myloma brother: prostate cancer father: prostate cancer maternal great aunt: ovarian cancer Hormonal: menarche: 14 , breast fed: yes: first born at 39 menopause: 55 BCP: none hormones: none Past Surgical History: 1. twice 2. open breast biopsy twice Medical History: diabetes HTN Social History: smoke: none alcohol: occasional drugs: none - Constitutional Constitutional: Denies chills, Denies fever - EENT Comment: wears glasses, epi-retinal membrane bilateral eyes, cataracts bilateral following Ears: deny: decreased hearing, tinnitus Ears, nose, mouth and throat: Denies headache, Denies sore throat - Breasts Breasts: bilateral: as per HPI - Cardiovascular Cardiovascular: Reports high blood pressure, Denies chest pain, Denies shortness of breath - Respiratory Respiratory: Denies cough - Gastrointestinal Comment: metformin some days cause diarrhea or constipation Gastrointestinal: Denies abdominal pain, Denies diarrhea, Denies nausea, Denies vomiting - Genitourinary (Female) Genitourinary: Denies dysuria, Denies hematuria - Menstruation Menstruation: Reports postmenopausal - Musculoskeletal Musculoskeletal: Denies myalgias - Integumentary Integumentary: Denies pruritus, Denies rash - Neurological Neurological: Denies numbness, Denies weakness - Psychiatric Psychiatric: Denies anxiety, Denies depression - Endocrine Comment: diabetes - Hematologic/Lymphatic Comment: baby aspirin - Allergic/Immunologic Allergic/Immunologic: Reports seasonal allergies Objective - Vital Signs Vital signs: Vital Signs Temp 98.0 F 03/16/20 09:46 Pulse 86 03/16/20 09:46 Resp 16 03/16/20 09:46 BP 110/71 03/16/20 09:46 Pulse Ox 96 03/16/20 09:46 Intake & Output 03/15/20 03/16/20 03/16/20 18:59 06:59 18:59 Weight 82.554 kg - Constitutional General appearance: Present: average body habitus - EENT Eyes: Present: EOMI ENT: Present: hearing grossly normal - Neck Neck: Present: normal ROM - Respiratory Respiratory: bilateral: CTA - Cardiovascular Rhythm: regular Heart sounds: normal: S1, S2 - Gastrointestinal General gastrointestinal: Present: normal bowel sounds, soft - Integumentary Integumentary: Present: normal turgor - Musculoskeletal Musculoskeletal: Present: gait normal - Psychiatric Psychiatric: Present: A&O x's 3, appropriate affect, intact judgment & insight - Additional findings Additional findings: breast exam: BRA: 34B inspection: grade 2 ptosis bilateral palpation: Right breast: Multi-positional exam fibrocystic changes predominantly masses or nodules of concern. right axilla: No adenopathy of concern Left breast: Multi-positional exam fibrocystic changes, no dominant masses or nodules of concern, well-healed scar upper outer quadrant from prior biopsy Left axilla: No adenopathy of concern Assessment and Plan Assessment: Impression: bilateral mammogram BIRAD 2 fibrocystic breast changes DM HTN Plan: 1. repeat bilateral mammogram in one year with appointment at that time CC: DR. Walsh encounter 20 minutes, > 50% of time in planning and counselling
== END | disposition home or self-care (01) ==
LOC: WWCWWP 09:33
PROVIDERS: ATTEND Surgery
DX: Z53.9 Procedure and treatment not carried out, unspecified reason (principal)

== ENCOUNTER → 2021-03-20 | Outpatient (CLI) | payer MEDICARE ==
[2021-03-20 15:28] VITALS: BP 138/73; PULSE 82; RESP 18; TEMP 98.3
--- NOTE | 2021-03-20 16:17 | P.HPOB ---
History of Present Illness H&P Date: 03/20/21 Chief Complaint: The patient is here for her routine gynecologic exam and ma mmogram. This is a 70-year-old 001 with an LMP of 2009. The patient is without gynecologic complaints and denies any postmenopausal bleeding. Review of Systems The patient has lost 5 pounds over the last year. She denies respiratory, cardiac, or G.I. problems. She denies maltreatment. Past Medical History Past Medical History: Diabetes Mellitus, Hypertension, Osteoarthritis (OA) Additional Past Medical History / Comment(s): Type 2 diabetes. Anemia, allergic rhinitis, gastritis, focal asymetric breast tissue. 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 History of Any Multi-Drug Resistant Organisms: None Reported Past Surgical History: Breast Surgery, Section Additional Past Surgical History / Comment(s): Left breast benign biopsy 2, C- section 2, Colonoscopy 2010 Past Anesthesia/Blood Transfusion Reactions: Family History of Problems w/ Anesthesia, Motion Sickness, Postoperative Nausea & Vomiting (PONV) Past Psychological History: No Psychological Hx Reported Smoking Status: Never smoker Past Alcohol Use History: Rare (2 per year) Additional Past Alcohol Use History / Comment(s): beer/ wine Past Drug Use History: None Reported Additional History: 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 - Past Family History Brother(s) Family Medical History: Cancer Additional Family Medical History / Comment(s): Multiple myeloma. . Daughter(s) Additional Family Medical History / Comment(s): Hydrocephaly and at age 3. Mother Family Medical History: Myocardial Infarction (HI) Father Family Medical History: Diabetes Mellitus Medications and Allergies Home Medications Medication Instructions Recorded Confirmed Type Aspirin 81 mg PO QAM 12/11/17 03/20/21 History Cetirizine HCl [Zyrtec] 10 mg PO QAM 12/11/17 03/20/21 History Cholecalciferol [Vitamin D3] 5 tab PO QAM 12/11/17 03/20/21 History Olmesartan [Benicar] 40 mg PO QAM 12/11/17 03/20/21 History Empagliflozin [Jardiance] 25 mg PO QAM 10/21/19 03/20/21 History Vit C/E/Zn/Coppr/Lutein/Zeaxan 1 each PO QAM 02/29/20 03/20/21 History [Preservision Areds 2 Softgel] Allergies Allergy/AdvReac Type Severity Reaction Status Date / Time No Known Allergies Allergy Verified 03/20/21 15:22 Exam Vital Signs Temp Pulse Resp BP Pulse Ox 03/20/21 15:23 98.3 F 82 18 138/73 98 Intake and Output 03/20/21 03/20/21 03/20/21 06:59 14:59 22:59 Other: Weight 79.832 kg Height 5 feet 3 inches, weight 176 pounds, BMI 31.2. This is a well-developed well-nourished white female who is alert and oriented times 3 in no acute distress. HEENT: Within normal limits. NECK: Supple without mass or thyromegaly. CHEST AND LUNGS: Clear to auscultation. HEART: Regular rate and rhythm. BREASTS: Are without mass or discharge. AXILLARY EXAM: Negative for adenopathy. BACK: Negative for CVA tenderness. ABDOMEN: Soft, nontender, without palpable masses. PELVIC EXAM: Normal external genitalia with mild atrophy. Cervix and vagina appear normal with mild atrophy. There is no unusual discharge. There is no evidence of prolapse. The uterus is midposition, nongravid size and nontender. There are no palpable adnexal masses or tenderness. RECTAL EXAM: Rectovaginal exam is negative for mass or tenderness and is negative for occult blood. EXTREMITIES: Nontender. IMPRESSION: 1. 70-year-old menopausal female with normal gynecologic exam. PLAN: 1. Pap smears have been discontinued. 2. Self breast awareness was discussed with the patient. We have also discuss ed symptoms associated with inflammatory breast cancer. She will continue to follow-up with Dr. Christopher Callaway for breast exams because of her history. 3. Screening mammogram will be done today. 4. Osteoporosis prevention was discussed. I have stressed the importance of adequate calcium, vitamin D and regular exercise. Recommended amounts of calcium and vitamin D were also discussed. She had a normal bone density test done in 2016 and we will plan on repeating this in approximately 2023. 5. She has completed her Covid vaccination series including a booster. She has received her flu shot this fall. 6. The patient was advised to return in 1-2 years for her well woman examination.
--- NOTE | 2021-03-22 09:35 | MM ---
Reason for exam: screening (asymptomatic). Last mammogram was performed 1 year ago. History: Patient is postmenopausal and had first child at age 37. Benign US biopsy breast VAD LT of the left breast, October 27, 2019. US discontinued breast bx LT of the left breast, April 22, 2019. 2 benign excisional biopsies of the left breast. Physical Findings: A clinical breast exam by your physician is recommended on an annual basis and results should be correlated with mammographic findings. MG 3D Screening Mammo W/Cad Bilateral CC and MLO view(s) were taken. Prior study comparison: March 13, 2020, bilateral MG 3d diag mammo w/cad [facility]. October 27, 2019, left breast MG diagnostic mammo LT wo CAD. October 20, 2019, left breast MG 3d diag mammo w/cad LT. February 24, 2019, bilateral MG 3d screening mammo w/cad. January 13, 2018, bilateral MG 3d diag mammo w/cad [facility]. January 07, 2017, bilateral MG 3d screening mammo w/cad. The breast tissue is heterogeneously dense. This may lower the sensitivity of mammography. Previous mammotome biopsy in the left breast. 8mm mass posterior 9 o'clock right breast. ASSESSMENT: Incomplete: need additional imaging evaluation, BI-RAD 0 RECOMMENDATION: Special view mammogram of the right breast. (3D) If lesion persists on supplemental views, image directed ultrasound is recommended. [facility] will attempt to contact patient to return for supplemental views and ultrasound if indicated.
== END ==
LOC: WWCWWP 14:56
PROVIDERS: ATTEND Obstetrics & Gynecology
DX: Z12.31 Encounter for screening mammogram for malignant neoplasm of breast (principal); Z01.419 Encounter for gynecological examination (general) (routine) without abnormal findings; E11.9 Type 2 diabetes mellitus without complications; I10 Essential (primary) hypertension; M19.90 Unspecified osteoarthritis, unspecified site; Z79.84 Long term (current) use of oral hypoglycemic drugs; Z79.899 Other long term (current) drug therapy; Z78.0 Asymptomatic menopausal state
CPT/HCPCS: 77063; 77067

== ENCOUNTER → 2021-03-23 | Outpatient (CLI) | payer MEDICARE ==
--- NOTE | 2021-03-23 11:53 | USB ---
EXAMINATION TYPE: US breast workup limited RT DATE OF EXAM: 03/23/2021 COMPARISON: Mammogram same date, 03/13/2020 CLINICAL HISTORY: r92.8 abnormal mammogram. Findings: The right breast was scanned with ultrasound from 10:00 and in the axilla and retroareolar regions. There is a 0.5 x 0.5 x 0.5 cm simple cyst in the right breast at 10:00 which corresponds well in size , location and morphology to the asymmetry on mammogram and is benign. IMPRESSION: No sonographic evidence for malignancy. BI-RADS 2, benign. Screening mammogram is recommended in one year.
--- NOTE | 2021-03-23 14:19 | MM ---
Reason for exam: additional evaluation requested from abnormal screening. Last mammogram was performed less than 1 month ago. History: Patient is postmenopausal and had first child at age 37. Family history of breast cancer in paternal aunt. Benign US biopsy breast VAD LT of the left breast, October 27, 2019. US discontinued breast bx LT of the left breast, April 22, 2019. 2 benign excisional biopsies of the left breast. Physical Findings: Nurse did not find any significant physical abnormalities on exam. MG 3D Work Up W/Cad RT Spot compression CC, spot compression MLO, and LM view(s) were taken of the right breast. Prior study comparison: March 20, 2021, bilateral MG 3d screening mammo w/cad. March 13, 2020, bilateral MG 3d diag mammo w/cad [facility]. The breast tissue is heterogeneously dense. This may lower the sensitivity of mammography. There is a persistent asymmetry right upper outer breast middle depth possibly a cyst or intramammary lymph node. These results were verbally communicated with the patient and result sheet given to the patient on 03/23/21. ASSESSMENT: Incomplete: need additional imaging evaluation, BI-RAD 0 RECOMMENDATION: Ultrasound of the right breast. MTDD
--- NOTE | 2021-03-27 14:36 | P.PN ---
Progress Note - Text Progress Note Date: 03/27/21 OUTPATIENT FOLLOW-UP NOTE TEST(S)/RESULTS: Screening mammogram done on 03/20/2021 was incomplete and a right breast workup was recommended. The right breast workup was done on 03/23/2021 and was benign. Screening mammogram was recommended in 1 year. METHOD OF NOTIFICATION: The patient was notified by phone. PATIENT COMMENTS: The patient states she already had heard this results the day of her right breast workup. DIAGNOSIS: Benign findings with screening mammogram and right breast workup. DISCUSSION: PLAN: She was advised to return in one year for her annual well woman exam. Screening mammogram will be done in 1 year.
== END | disposition home or self-care (01) ==
LOC: RADMAMWWP 09:23
PROVIDERS: ATTEND Obstetrics & Gynecology
DX: N60.01 Solitary cyst of right breast (principal); N64.89 Other specified disorders of breast; Z78.0 Asymptomatic menopausal state; Z80.3 Family history of malignant neoplasm of breast
CPT/HCPCS: 77065; 76642; G0279; 77061

== ENCOUNTER → 2021-03-23 | Outpatient (CLI) | payer MEDICARE ==
[2021-03-23 13:19] VITALS: BP 104/61; PULSE 78; RESP 16; TEMP 98.1
--- NOTE | 2021-03-23 13:51 | P.PN ---
Subjective Progress Note Date: 03/23/21 Principal diagnosis: fibroocystic breast changes fibrocystic breast changes The patient is a 70 year old seen initially in consultation for DR. Walsh who had a routine screening mammogram performed on 02-24-19 was noted to have a change in the left breast. Additional views were obtained on 03-09-19 and an ultrasound as well. A 0.6 cm lesion was noted at the 6 OClock position and a biopsy was recommended. She has had two open biopsies in the past in the left breast. These were both benign, one was a blocked milk duct. The other she does not know the results. She underwent an ultrasound core biopsy on 10-27-19. This was benign, concordant. She had a bilateral mammogram on 03-13-20 which was Benign BIRAD 2. She is not complaining of any lumps masses or nodules in her breast. She is not complaining of any nipple discharge or skin changes. She has had 2 open breast biopsies in the past. She has not had any trauma or infection in the breast. She had a bilateral mammogram on additional imaging to enclose facet special view of the right breast was recommended the patient had an ultrasound performed which revealed a 0.5 and 0.5 simple cyst in the right breast as well as a repeat mammogram of the right side a separate report and the mammogram was not available to me however following the ultrasound screening mammogram in 1 year was recommended. The patient does not feel any lumps masses or nodules of concern in either breast. Family History: brother: multiple myloma brother: prostate cancer father: prostate cancer maternal great aunt: ovarian cancer paternal aunt: breast cancer Hormonal: menarche: 14 , breast fed: yes: first born at 39 menopause: 55 BCP: none hormones: none Past Surgical History: 1. twice 2. open breast biopsy twice Medical History: diabetes HTN Social History: smoke: none alcohol: occasional drugs: none - Constitutional Constitutional: Denies chills, Denies fever - EENT Comment: wears glasses, epi-retinal membrane bilateral eyes, cataracts bilateral following Ears: deny: decreased hearing, tinnitus Ears, nose, mouth and throat: Denies headache, Denies sore throat - Breasts Breasts: bilateral: as per HPI - Cardiovascular Cardiovascular: Reports high blood pressure, Denies chest pain, Denies shortness of breath - Respiratory Respiratory: Denies cough - Gastrointestinal Comment: metformin some days cause diarrhea or constipation Gastrointestinal: Denies abdominal pain, Denies diarrhea, Denies nausea, Denies vomiting - Genitourinary (Female) Genitourinary: Denies dysuria, Denies hematuria - Menstruation Menstruation: Reports postmenopausal - Musculoskeletal Musculoskeletal: Denies myalgias - Integumentary Integumentary: Denies pruritus, Denies rash - Neurological Neurological: Denies numbness, Denies weakness - Psychiatric Psychiatric: Denies anxiety, Denies depression - Endocrine Comment: diabetes - Hematologic/Lymphatic Comment: baby aspirin - Allergic/Immunologic Allergic/Immunologic: Reports seasonal allergies Objective - Vital Signs Vital signs: Vital Signs Temp 98.1 F 03/23/21 13:16 Pulse 78 03/23/21 13:16 Resp 16 03/23/21 13:16 BP 104/61 03/23/21 13:16 Pulse Ox 100 03/23/21 13:16 Intake & Output 03/22/21 03/23/21 03/23/21 18:59 06:59 18:59 Weight 78.925 kg - Exam BMI 30.8 - Constitutional General appearance: Present: cooperative - EENT Eyes: Present: EOMI ENT: Present: hearing grossly normal - Neck Neck: Present: normal ROM - Respiratory Respiratory: bilateral: CTA - Cardiovascular Rhythm: regular Heart sounds: normal: S1, S2 - Gastrointestinal General gastrointestinal: Present: soft - Integumentary Integumentary: Present: normal turgor - Musculoskeletal Musculoskeletal: Present: gait normal - Psychiatric Psychiatric: Present: A&O x's 3, appropriate affect, intact judgment & insight - Additional findings Additional findings: Breast Exam: BRA: 34B Inspection: Bilateral grade 2 ptosis Palpation: Right breast: Multi-positional exam fibrocystic changes no dominant masses or nodules of concern Right axilla: No adenopathy of concern Left breast: Multiple positional exam fibrocystic changes no dominant masses or nodules of concern Left axilla: No adenopathy of concern Assessment and Plan Assessment: Impression: Fibrocystic breast changes Plan: Repeat bilateral mammogram in 1 year with physician exam at that time CC: Dr. Walsh
== END ==
LOC: WWCWWP 09:19
PROVIDERS: ATTEND Surgery
DX: N60.12 Diffuse cystic mastopathy of left breast (principal); E11.9 Type 2 diabetes mellitus without complications; I10 Essential (primary) hypertension

== ENCOUNTER → 2022-03-26 | Outpatient (CLI) | payer MEDICARE ==
[2022-03-26 07:56] VITALS: BP 99/63; PULSE 99; RESP 17; TEMP 98.3
--- NOTE | 2022-03-26 08:29 | P.HPOB ---
History of Present Illness H&P Date: 03/26/22 Chief Complaint: The patient is here for her routine gynecologic exam and ma mmogram. This is a 71-year-old with an LMP of 2009. Patient is without gynecologic complaints. Review of Systems The patient has lost 3 pounds over the last year. She denies respiratory or cardiac problems. GI: She has had some slight constipation and nausea with her new diabetes medication. She states it has been improving. Past Medical History Past Medical History: Diabetes Mellitus, Hypertension, Osteoarthritis (OA) Additional Past Medical History / Comment(s): Type 2 diabetes. Anemia, allergic rhinitis, gastritis, focal asymetric breast tissue. 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 History of Any Multi-Drug Resistant Organisms: None Reported Past Surgical History: Breast Surgery, Section Additional Past Surgical History / Comment(s): Left breast benign biopsy 2, C- section 2, Colonoscopy 2010(then Cologard screening) Past Anesthesia/Blood Transfusion Reactions: Family History of Problems w/ Anesthesia, Motion Sickness, Postoperative Nausea & Vomiting (PONV) Past Psychological History: No Psychological Hx Reported Smoking Status: Never smoker Past Alcohol Use History: Rare (6 per year) Additional Past Alcohol Use History / Comment(s): beer/ wine Past Drug Use History: None Reported Additional History: 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 - Past Family History Brother(s) Family Medical History: Cancer Additional Family Medical History / Comment(s): Multiple myeloma. . Daughter(s) Additional Family Medical History / Comment(s): Hydrocephaly and at age 3. Mother Family Medical History: Myocardial Infarction (HI) Father Family Medical History: Diabetes Mellitus Medications and Allergies Home Medications Medication Instructions Recorded Confirmed Type Aspirin 81 mg PO QAM 12/11/17 03/26/22 History Cetirizine HCl [Zyrtec] 10 mg PO QAM 12/11/17 03/26/22 History Cholecalciferol [Vitamin D3] 5 tab PO QAM 12/11/17 03/26/22 History Olmesartan [Benicar] 40 mg PO QAM 12/11/17 03/26/22 History Empagliflozin [Jardiance] 25 mg PO QAM 10/21/19 03/26/22 History Vit C/E/Zn/Coppr/Lutein/Zeaxan 1 each PO QAM 02/29/20 03/26/22 History [Preservision Areds 2 Softgel] Allergies Allergy/AdvReac Type Severity Reaction Status Date / Time No Known Allergies Allergy Verified 03/26/22 07:49 Exam Vital Signs Temp Pulse Resp BP Pulse Ox 03/26/22 07:52 98.3 F 99 17 99/63 97 Intake and Output 03/25/22 03/26/22 03/26/22 22:59 06:59 14:59 Other: Weight 78.471 kg Height 5 feet 3 inches, weight 173 pounds, BMI 30.6. This is a well-developed well-nourished white female who is alert and oriented times 3 in no acute distress. HEENT: Within normal limits. NECK: Supple without mass or thyromegaly. CHEST AND LUNGS: Clear to auscultation. HEART: Regular rate and rhythm. BREASTS: Are without mass or discharge. AXILLARY EXAM: Negative for adenopathy. BACK: Negative for CVA tenderness. ABDOMEN: Soft, nontender, without palpable masses. PELVIC EXAM: Normal external genitalia with mild atrophy. Cervix and vagina appear normal with mild atrophy. There is no unusual discharge. There is no evidence of prolapse. The uterus is midposition, nongravid size and nontender. There are no palpable adnexal masses or tenderness. RECTAL EXAM: Rectovaginal exam is negative for mass or tenderness and is negative for occult blood. EXTREMITIES: Nontender. IMPRESSION: 1. 71-year-old menopausal female with normal gynecologic exam. PLAN: 1. Pap smears have been discontinued. 2. Self breast awareness was discussed with the patient. We have also discussed symptoms associated with inflammatory breast cancer. She continues to follow up with Dr. Christopher Callaway for breast exams because of her history of benign breast changes. 3. Screening mammogram will be done today. 4. Osteoporosis prevention was discussed. I have stressed the importance of adequate calcium, vitamin D and regular exercise. Recommended amounts of calcium and vitamin D were also discussed. We will plan on repeating bone density testing in 2022, or at the latest 2023. She had a normal bone density test done on 12/25/2016. 5. She has completed her Covid vaccination series and has received 2 boosters. 6. She had a negative Cologuard testing in 2021. She plans to repeat this in 3 years. 7. The patient was advised to return in 1-2 years for her well woman examination.
--- NOTE | 2022-03-26 10:57 | MM ---
Reason for Exam: Screening (asymptomatic). Last screening mammogram was performed 12 month(s) ago. Patient History: Menarche at age 15. First Full-Term at age 37. Late child-bearing (after 30). Postmenopausal. Benign Excisional Biopsy on the left side. Benign Excisional Biopsy on the left side. 10/27/2019, Benign Core Biopsy on the left side. 04/22/2019, US discontinued breast bx LT on the left side. Paternal aunt had breast cancer. Risk Values: [place] 5 year model risk: 3.3%. NCI Lifetime model risk: 9.4%. Prior Study Comparison: 03/13/2020 Bilateral Diagnostic Mammogram, [facility]. 03/20/2021 Bilateral Screening Mammogram, [facility]. 03/23/2021 Right Diagnostic Mammogram, [facility]. Tissue Density: The breast tissue is heterogeneously dense. This may lower the sensitivity of mammography. Findings: Analyzed By CAD. There is mammotome biopsy clip in the left breast redemonstrated. Scattered benign-appearing bilateral axillary lymph nodes are again seen. There is no suspicious new group of microcalcifications or new suspicious mass in either breast. Overall Assessment: Benign, BI-RAD 2 Management: Screening Mammogram of both breasts in 1 year. A clinical breast exam by your physician is recommended on an annual basis and results should be correlated with mammographic findings. Electronically signed and approved by: Hi Alford M.D.
== END | disposition home or self-care (01) ==
LOC: WWCWWP 07:41
PROVIDERS: ATTEND Obstetrics & Gynecology
DX: Z12.31 Encounter for screening mammogram for malignant neoplasm of breast (principal)
CPT/HCPCS: 77063; 77067

== ENCOUNTER → 2022-04-11 | Outpatient (CLI) | payer MEDICARE ==
[2022-04-11 10:39] VITALS: BP 113/70; RESP 18; TEMP 98.2
--- NOTE | 2022-04-11 10:56 | P.PN ---
Subjective Progress Note Date: 04/11/22 Principal diagnosis: fibrocystic breast changes fibroocystic breast changes fibrocystic breast changes The patient is a 70 year old seen initially in consultation for DR. Walsh who had a routine screening mammogram performed on 02-24-19 was noted to have a change in the left breast. Additional views were obtained on 03-09-19 and an ultrasound as well. A 0.6 cm lesion was noted at the 6 OClock position and a biopsy was recommended. She has had two open biopsies in the past in the left breast. These were both benign, one was a blocked milk duct. The other she does not know the results. She underwent an ultrasound core biopsy on 10-27-19. This was benign, concorda nt. She had a bilateral mammogram on 03-13-20 which was Benign BIRAD 2. She is not complaining of any lumps masses or nodules in her breast. She is not complaining of any nipple discharge or skin changes. She has had 2 open breast biopsies in the past. She has not had any trauma or infection in the breast. She had a bilateral mammogram on . This was BIRAD 2. The patient does not feel any lumps masses or nodules of concern in either breast. Family History: brother: multiple myloma brother: prostate cancer father: prostate cancer maternal great aunt: ovarian cancer paternal aunt: breast cancer Hormonal: menarche: 14 , breast fed: yes: first born at 39 menopause: 55 BCP: none hormones: none Past Surgical History: 1. twice 2. open breast biopsy twice Medical History: diabetes HTN Social History: smoke: none alcohol: occasional drugs: none - Constitutional Constitutional: Denies chills, Denies fever - EENT Comment: wears glasses, epi-retinal membrane bilateral eyes, cataracts bilateral following Ears: deny: decreased hearing, tinnitus Ears, nose, mouth and throat: Denies headache, Denies sore throat - Breasts Breasts: bilateral: as per HPI - Cardiovascular Cardiovascular: Reports high blood pressure, Denies chest pain, Denies shortness of breath - Respiratory Respiratory: Denies cough - Gastrointestinal Comment: metformin some days cause diarrhea or constipation Gastrointestinal: Denies abdominal pain, Denies diarrhea, Denies nausea, Denies vomiting - Genitourinary (Female) Genitourinary: Denies dysuria, Denies hematuria - Menstruation Menstruation: Reports postmenopausal - Musculoskeletal Musculoskeletal: Denies myalgias - Integumentary Integumentary: Denies pruritus, Denies rash - Neurological Neurological: Denies numbness, Denies weakness - Psychiatric Psychiatric: Denies anxiety, Denies depression - Endocrine Comment: diabetes - Hematologic/Lymphatic Comment: baby aspirin - Allergic/Immunologic Allergic/Immunologic: Reports seasonal allergies Objective - Vital Signs Vital signs: Vital Signs Temp 98.2 F 04/11/22 10:27 Pulse Resp 18 04/11/22 10:27 BP 113/70 04/11/22 10:27 Pulse Ox 98 04/11/22 10:27 FiO2 Intake & Output 04/10/22 04/11/22 04/11/22 18:59 06:59 18:59 Weight 80.739 kg - Constitutional General appearance: Present: cooperative - EENT Eyes: Present: EOMI ENT: Present: hearing grossly normal - Neck Neck: Present: normal ROM - Respiratory Respiratory: bilateral: CTA - Cardiovascular Rhythm: regular Heart sounds: normal: S1, S2 - Gastrointestinal General gastrointestinal: Present: soft - Integumentary Integumentary: Present: normal turgor - Musculoskeletal Musculoskeletal: Present: gait normal - Psychiatric Psychiatric: Present: A&O x's 3, appropriate affect, intact judgment & insight - Additional findings Additional findings: Breast Exam: BRA: 34B inspection: Bilateral grade 2 ptosis Palpation: Right breast: Multiple positional exam fibrocystic changes no dominant masses or nodules of concern Right axilla: No adenopathy of concern Left breast: Multi-positional exam fibrocystic changes no dominant masses or nodules of concern Left axilla: No adenopathy of concern Assessment and Plan Assessment: Impression: Bilateral fibrocystic breast changes Bilateral mammogram [id number] BIRADS 2 Plan: Repeat bilateral mammogram in 1 year with physician exam at that time Patient follow-up sooner any questions or concerns CC: Dr. Chapman, Dr. Segovia
== END ==
LOC: WWCWWP 09:52
PROVIDERS: ATTEND Surgery
DX: N60.11 Diffuse cystic mastopathy of right breast (principal); N60.12 Diffuse cystic mastopathy of left breast

== ENCOUNTER → 2023-04-01 | Outpatient (CLI) | payer MEDICARE ==
--- NOTE | 2023-04-01 09:50 | P.HPOB ---
History of Present Illness H&P Date: 04/01/23 Chief Complaint: The patient is here for her routine gynecologic exam and ma mmogram. This is a 72-year-old 001 with an LMP of 2009. The patient is without gynecologic complaints. Review of Systems Her weight has been stable. She denies respiratory or cardiac problems. GI: She has had occasional loose stool or constipation which she attributes to her new diabetes medication. This seems to be getting better. Past Medical History Past Medical History: Diabetes Mellitus, Hyperlipidemia, Hypertension, Osteoarthritis (OA) Additional Past Medical History / Comment(s): Type 2 diabetes. Anemia, allergic rhinitis, gastritis, focal asymetric breast tissue. 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 History of Any Multi-Drug Resistant Organisms: None Reported Past Surgical History: Breast Surgery, Section Additional Past Surgical History / Comment(s): Left breast benign biopsy 2, C- section 2, cataract surgery, Colonoscopy 2010(then Cologard screening) Past Anesthesia/Blood Transfusion Reactions: Family History of Problems w/ Anesthesia, Motion Sickness, Postoperative Nausea & Vomiting (PONV) Past Psychological History: No Psychological Hx Reported (PHQ-2 questionaire was given and she scores 0. 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 She is no longer sexually active. - Past Family History Brother(s) Family Medical History: Cancer Additional Family Medical History / Comment(s): Multiple myeloma. . Daughter(s) Additional Family Medical History / Comment(s): Hydrocephaly and at age 3. Mother Family Medical History: Myocardial Infarction ([place]) Father Family Medical History: Diabetes Mellitus Medications and Allergies Home Medications Medication Instructions Recorded Confirmed Type Aspirin 81 mg PO QAM 12/11/17 04/01/23 History Cetirizine HCl [Zyrtec] 10 mg PO QAM 12/11/17 04/01/23 History Cholecalciferol [Vitamin D3] 5 tab PO QAM 12/11/17 04/01/23 History Olmesartan [Benicar] 40 mg PO QAM 12/11/17 04/01/23 History Empagliflozin [Jardiance] 25 mg PO QAM 10/21/19 04/01/23 History Vit C/E/Zn/Coppr/Lutein/Zeaxan 1 each PO QAM 02/29/20 04/01/23 History [Preservision Areds 2 Softgel] Simvastatin [Zocor] 20 mg PO HS 04/01/23 04/01/23 History sitaGLIPtin [Januvia] 100 mg PO DAILY 04/01/23 04/01/23 History Allergies Allergy/AdvReac Type Severity Reaction Status Date / Time No Known Allergies Allergy Verified 04/01/23 09:19 Exam Vital Signs Temp Pulse Resp BP 04/01/23 09:22 98.0 F 90 13 126/81 Intake and Output 03/31/23 04/01/23 04/01/23 22:59 06:59 14:59 Other: Weight 78.018 kg Height 5 feet 3 inches, weight 172 pounds, BMI 30.5. This is a well-developed well-nourished white female who is alert and oriented times 3 in no acute distress. HEENT: Within normal limits. NECK: Supple without mass or thyromegaly. CHEST AND LUNGS: Clear to auscultation. HEART: Regular rate and rhythm. BREASTS: Are without mass or discharge. AXILLARY EXAM: Negative for adenopathy. BACK: Negative for CVA tenderness. ABDOMEN: Soft, nontender, without palpable masses. PELVIC EXAM: Normal external genitalia with mild atrophy. Cervix and vagina appear normal with mild atrophy. There is no unusual discharge. There is no evidence of prolapse. The uterus is midposition, nongravid size and nontender. There are no palpable adnexal masses or tenderness. RECTAL EXAM: Rectovaginal exam is negative for mass or tenderness and is negative for occult blood. EXTREMITIES: Nontender. IMPRESSION: 1. 72-year-old menopausal female with normal gynecologic exam. PLAN: 1. Pap smears have been discontinued. 2. Self breast awareness was discussed with the patient. We have also discussed symptoms associated with inflammatory breast cancer. 3. Screening mammogram will be done today. 4. Osteoporosis prevention was discussed. I have stressed the importance of adequate calcium, vitamin D and regular exercise. Recommended amounts of c alcium and vitamin D were also discussed. Her last bone density test was on 12/25/2016. That one was normal. We are going to repeat the bone density test again today. 5. PHQ-2 questionaire was given and she scores 0. This is a negative screen for depression. 6. Colorectal cancer screening has been done with Cologuard testing through her PCP. 7. She was advised to return in one year for her annual well woman exam.
[2023-04-01 09:51] VITALS: BP 126/81; PULSE 90; RESP 13; TEMP 98
--- NOTE | 2023-04-01 12:23 | BD ---
EXAMINATION TYPE: Axial Bone Density DATE OF EXAM: 04/01/2023 CLINICAL HISTORY: 72 years old Female. ICD-10 CODE: Z78.0 POST MENOPAUSAL WITHOUT HRT Height: Weight: FRAX RISK QUESTIONS: Alcohol (3 or more units per day): no Family History (Parent hip fracture): no Glucocorticoids (More than 3mos): no (Ex: prednisone, prednisolone, methylprednisolone, dexamethasone, and hydrocortisone). History of Fracture in Adulthood: no Secondary Osteoporosis: 1. Type 1 Diabetes: no 2. Hyperthyroidism: no 3. Menopause before 45: no 4. Malnutrition: no 5. Chronic liver disease: no Rheumatoid Arthritis: no Current Tobacco Use: no RISK FACTORS HISTORY OF: Surgery to Spine/Hip(right/left)/Wrist (right/left): no MEDICATIONS: Additional History: EXAM MEASUREMENTS: Bone mineral densitometry was performed using the [employer] System. Bone mineral density as measured about the Lumbar spine is: ----- L1-L4(G/cm2): 1.344 T Score Values are as follows: ----- L1: 0.0 ----- L2: 0.6 ----- L3: 2.3 ----- L4: 2.3 ----- L1-L4: 1.4 Z Score Values are as follows: ----- L1: 1.3 ----- L2: 1.9 ----- L3: 3.5 ----- L4: 3.3 ----- L1-L4: 2.6 Bone mineral density : baseline Bone mineral density about the R hip (g/cm2): 1.187 Bone mineral density about the L hip (g/cm2): 1.215 T Score values are as follows: -----R Neck: 0.4 -----L Neck: 0.5 -----R Total: 1.4 -----L Total: 1.6 Z Score values are as follows: -----R Neck: 1.9 -----L Neck: 2.0 -----R Total: 2.7 -----L Total: 2.9 Bone mineral density : baseline FRAX%s: The graph provided illustrates a 6.5% chance for a major osteoporotic fx and a 0.3% chance fo r the hips probability for fx in 10 years time. IMPRESSION: Normal (Values between +1 and -1 indicate normal bone mass). Consider repeating this study in 5 year s or sooner if there is some new clinical indication. NOTE: T-SCORE=SD OF THE YOUNG ADULT MEAN.
--- NOTE | 2023-04-02 09:43 | P.PN ---
Progress Note - Text Progress Note Date: 04/02/23 OUTPATIENT FOLLOW-UP NOTE TEST(S)/RESULTS: Bone density test done on 04/01/2023 was normal. METHOD OF NOTIFICATION: The patient was notified by phone on 04/02/2023. PATIENT COMMENTS: She is happy to hear these results. DIAGNOSIS: Normal bone density test. DISCUSSION: PLAN: Repeat bone density test in 6 years.
--- NOTE | 2023-04-02 23:54 | MM ---
Reason for Exam: Screening (asymptomatic). Last screening mammogram was performed 12 month(s) ago. Patient History: Menarche at age 15. First Full-Term at age 37. Late child-bearing (after 30). Postmenopausal. Patient has history of breast feeding. Benign Excisional Biopsy on the left side. Benign Excisional Biopsy on the left side. 10/27/2019, Benign Core Biopsy on the left side. 04/22/2019, US discontinued breast bx LT on the left side. Paternal aunt had breast cancer. Risk Values: Alma 5 year model risk: 3.3%. NCI Lifetime model risk: 8.9%. Prior Study Comparison: 03/20/2021 Bilateral Screening Mammogram, [facility]. 03/23/2021 Right Diagnostic Mammogram, [facility]. 03/26/2022 Bilateral MG 3D screening mammo w/cad, [facility]. Tissue Density: The breast tissue is heterogeneously dense. This may lower the sensitivity of mammography. Findings: Analyzed By CAD. Microclip left breast from prior biopsy. Unchanged asymmetric density left breast. There is no suspicious group of microcalcifications or new suspicious mass in either breast. Overall Assessment: Benign, BI-RAD 2 Management: Screening Mammogram of both breasts in 1 year. See note below in regards to patient's increased 5 year Alma score. Patient should continue monthly self-breast exams. A clinical breast exam by your physician is recommended on an annual basis. This exam should not preclude additional follow-up of suspicious palpable abnormalities. Note on Alma scores and lifetime risk: 1. A Alma score greater than 3% is considered moderate risk. If this is the case, consider specialist referral to assess eligibility for a risk reducing agent. 2. If overall lifetime risk for the development of breast cancer is 20% or higher, the patient may qualify for future screening with alternating mammogram and breast MRI. Electronically signed and approved by: Tish Richardson M.D. Radiologist
== END ==
LOC: WWCWWP 09:03
PROVIDERS: ATTEND Obstetrics & Gynecology
DX: Z12.31 Encounter for screening mammogram for malignant neoplasm of breast (principal); E11.9 Type 2 diabetes mellitus without complications; E78.5 Hyperlipidemia, unspecified; I10 Essential (primary) hypertension; M19.90 Unspecified osteoarthritis, unspecified site; M81.8 Other osteoporosis without current pathological fracture; Z78.0 Asymptomatic menopausal state; Z87.19 Personal history of other diseases of the digestive system; Z79.84 Long term (current) use of oral hypoglycemic drugs; Z79.82 Long term (current) use of aspirin; Z79.899 Other long term (current) drug therapy
CPT/HCPCS: 77063; 77067; 77080

== ENCOUNTER → 2023-04-10 | Outpatient (CLI) | payer MEDICARE ==
[2023-04-10 10:00] VITALS: BP 112/71; PULSE 92; RESP 16; TEMP 97.8
--- NOTE | 2023-04-10 10:03 | P.PN ---
Subjective Progress Note Date: 04/10/23 fibroocystic breast changes fibrocystic breast changes The patient is a 72 year old seen initially in consultation for DR. Walsh who had a routine screening mammogram performed on 02-24-19 was noted to have a change in the left breast. Additional views were obtained on 03-09-19 and an ultrasound as well. A 0.6 cm lesion was noted at the 6 OClock position and a biopsy was recommended. She has had two open biopsies in the past in the left breast. These were both benign, one was a blocked milk duct. The other she does not know the results. She underwent an ultrasound core biopsy on 10-27-19. This was benign, concordant. She is not complaining of any lumps masses or nodules in her breast. She is not complaining of any nipple discharge or skin changes. She has had 2 open breast biopsies in the past. She has not had any trauma or infection in the breast. She had a bilateral mammogram on . This was BIRAD 2. The patient does not feel any lumps masses or nodules of concern in either breast. Family History: brother: multiple myloma brother: prostate cancer father: prostate cancer maternal great aunt: ovarian cancer paternal aunt: breast cancer Hormonal: menarche: 14 , breast fed: yes: first born at 39 menopause: 55 BCP: none hormones: none Past Surgical History: 1. twice 2. open breast biopsy twice Medical History: diabetes HTN Social History: smoke: none alcohol: occasional drugs: none - Constitutional Constitutional: Denies chills, Denies fever - EENT Comment: wears glasses, epi-retinal membrane bilateral eyes, cataracts bilateral following Ears: deny: decreased hearing, tinnitus Ears, nose, mouth and throat: Denies headache, Denies sore throat - Breasts Breasts: bilateral: as per HPI - Cardiovascular Cardiovascular: Reports high blood pressure, Denies chest pain, Denies shortness of breath - Respiratory Respiratory: Denies cough - Gastrointestinal Comment: metformin some days cause diarrhea or constipation Gastrointestinal: Denies abdominal pain, Denies diarrhea, Denies nausea, Denies vomiting - Genitourinary (Female) Genitourinary: Denies dysuria, Denies hematuria - Menstruation Menstruation: Reports postmenopausal - Musculoskeletal Musculoskeletal: Denies myalgias - Integumentary Integumentary: Denies pruritus, Denies rash - Neurological Neurological: Denies numbness, Denies weakness - Psychiatric Psychiatric: Denies anxiety, Denies depression - Endocrine Comment: diabetes - Hematologic/Lymphatic Comment: baby aspirin - Allergic/Immunologic Allergic/Immunologic: Reports seasonal allergies Objective - Constitutional General appearance: Present: cooperative - EENT Eyes: Present: EOMI ENT: Present: hearing grossly normal - Neck Neck: Present: normal ROM - Respiratory Respiratory: bilateral: CTA - Cardiovascular Rhythm: regular Heart sounds: normal: S1, S2 - Integumentary Integumentary: Present: normal turgor - Musculoskeletal Musculoskeletal: Present: gait normal - Psychiatric Psychiatric: Present: A&O x's 3, appropriate affect, intact judgment & insight - Additional findings Additional findings: Breast Exam: BRA: 34B inspection: Bilateral grade 2 ptosis Palpation: Right breast: Multiple positional exam fibrocystic changes no dominant masses or nodules of concern Right axilla: No adenopathy of concern Left breast: Multi-positional exam fibrocystic changes no dominant masses or nodules of concern Left axilla: No adenopathy of concern Assessment and Plan Assessment: Impression: Bilateral fibrocystic breast changes Bilateral mammogram [id number] BIRADS 2 Plan: Repeat bilateral mammogram in 1 year with physician exam at that time Patient follow-up sooner any questions or concerns CC: Dr. Chapman, Dr. Segovia
== END ==
LOC: WWCWWP 09:30
PROVIDERS: ATTEND Surgery
DX: Z12.31 Encounter for screening mammogram for malignant neoplasm of breast (principal); N60.11 Diffuse cystic mastopathy of right breast; N60.12 Diffuse cystic mastopathy of left breast; E11.9 Type 2 diabetes mellitus without complications; I10 Essential (primary) hypertension; Z80.3 Family history of malignant neoplasm of breast; Z79.82 Long term (current) use of aspirin; Z79.84 Long term (current) use of oral hypoglycemic drugs; Z79.899 Other long term (current) drug therapy

== ENCOUNTER → 2024-04-06 | Outpatient (CLI) | payer MEDICARE ==
[2024-04-06 08:17] VITALS: BP 131/77; PULSE 100; RESP 16; TEMP 98.7
--- NOTE | 2024-04-06 08:33 | P.HPOB ---
History of Present Illness H&P Date: 04/06/24 Chief Complaint: The patient is here for her routine gynecologic exam and ma mmogram. This is a 73-year-old -0-0-1 with an LMP of 2009. The patient is without gynecologic complaints. Review of Systems The patient has lost 2 pounds over the last year. She denies respiratory, cardiac, or G.I. problems. Past Medical History Past Medical History: Diabetes Mellitus, Hyperlipidemia, Hypertension, Osteoar thritis (OA) Additional Past Medical History / Comment(s): Type 2 diabetes. Anemia, allergic rhinitis, gastritis, focal asymetric breast tissue. 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 History of Any Multi-Drug Resistant Organisms: None Reported Past Surgical History: Breast Surgery, Section Additional Past Surgical History / Comment(s): Left breast benign biopsy 2, C- section 2, cataract surgery, Colonoscopy 2010(then Cologard screening) Past Anesthesia/Blood Transfusion Reactions: Family History of Problems w/ Anesthesia, Motion Sickness, Postoperative Nausea & Vomiting (PONV) Past Psychological History: No Psychological Hx Reported Smoking Status: Never smoker Past Alcohol Use History: Rare (3 or 4 drinks per year.) Additional Past Alcohol Use History / Comment(s): beer/ wine Past Drug Use History: None Reported Additional History: She has been since 1987 and is not sexually active. 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 - Past Family History Brother(s) Family Medical History: Cancer Additional Family Medical History / Comment(s): Multiple myeloma. . Daughter(s) Additional Family Medical History / Comment(s): Hydrocephaly and at age 3. Mother Family Medical History: Myocardial Infarction ([place]) Father Family Medical History: Diabetes Mellitus Sister(s) Family Medical History: Diabetes Mellitus Medications and Allergies Home Medications Medication Instructions Recorded Confirmed Type Aspirin 81 mg PO QAM 12/11/17 04/10/23 History Cetirizine HCl [Zyrtec] 10 mg PO QAM 12/11/17 04/10/23 History Cholecalciferol [Vitamin D3] 5 tab PO QAM 12/11/17 04/10/23 History Olmesartan [Benicar] 40 mg PO QAM 12/11/17 04/10/23 History Empagliflozin [Jardiance] 25 mg PO QAM 10/21/19 04/10/23 History Vit C/E/Zn/Coppr/Lutein/Zeaxan 1 each PO QAM 02/29/20 04/10/23 History [Preservision Areds 2 Softgel] Simvastatin [Zocor] 20 mg PO HS 04/01/23 04/10/23 History sitaGLIPtin [Januvia] 100 mg PO DAILY 04/01/23 04/10/23 History Allergies Allergy/AdvReac Type Severity Reaction Status Date / Time No Known Allergies Allergy Verified 04/06/24 08:12 Exam Vital Signs Temp Pulse Resp BP Pulse Ox 04/06/24 08:12 98.7 F 100 16 131/77 97 Intake and Output 04/05/24 04/06/24 04/06/24 22:59 06:59 14:59 Other: Weight 77.111 kg Height 5 feet 3 inches, weight 170 pounds, BMI 30.1. This is a well-developed well-nourished white female who is alert and oriented times 3 in no acute distress. HEENT: Within normal limits. NECK: Supple without mass or thyromegaly. CHEST AND LUNGS: Clear to auscultation. HEART: Regular rate and rhythm. BREASTS: Are without mass or discharge. AXILLARY EXAM: Negative for adenopathy. BACK: Negative for CVA tenderness. ABDOMEN: Soft, nontender, without palpable masses. PELVIC EXAM: Normal external genitalia with mild atrophy. Cervix and vagina appear normal with mild atrophy. There is no unusual discharge. There is no evidence of prolapse. The uterus is midposition, nongravid size and nontender. There are no palpable adnexal masses or tenderness. RECTAL EXAM: Rectovaginal exam is negative for mass or tenderness and is negative for occult blood. EXTREMITIES: Nontender. IMPRESSION: 1. 73-year-old menopausal female with normal gynecologic exam. PLAN: 1. Pap smears have been discontinued. 2. Self breast awareness was discussed with the patient. We have also discussed symptoms associated with inflammatory breast cancer. 3. Screening mammogram will be done today. 4. Osteoporosis prevention was discussed. She had a normal bone density test done on 04/01/2023. Will repeat this in approximately 2028. 5. She was advised to return in one year for her annual well woman exam.
--- NOTE | 2024-04-07 07:55 | MM ---
Reason for Exam: Screening (asymptomatic). Last screening mammogram was performed 12 month(s) ago. Patient History: Menarche at age 15. First Full-Term at age 37. Late child-bearing (after 30). Postmenopausal. Patient has history of breast feeding. Benign Excisional Biopsy on the left side. Benign Excisional Biopsy on the left side. 10/27/2019, Benign Core Biopsy on the left side. 04/22/2019, US discontinued breast bx LT on the left side. Paternal aunt had breast cancer. Risk Values: Alma 5 year model risk: 3.3%. NCI Lifetime model risk: 8.5%. Prior Study Comparison: 03/23/2021 Right Diagnostic Mammogram, [facility]. 03/26/2022 Bilateral MG 3D screening mammo w/cad, [facility]. 04/01/2023 Bilateral MG 3D screening mammo w/cad, [facility]. Tissue Density: The breasts are heterogeneously dense, which may obscure small masses. Findings: Analyzed By CAD. There is no suspicious group of microcalcifications or new suspicious mass in either breast. Surgical clip left breast. Benign-appearing calcifications. Overall Assessment: Benign, BI-RAD 2 Management: Screening Mammogram of both breasts in 1 year. . Patient should continue monthly self-breast exams. A clinical breast exam by your physician is recommended on an annual basis. This exam should not preclude additional follow-up of suspicious palpable abnormalities. Note on Alma scores and lifetime risk: 1. A Alma score greater than 3% is considered moderate risk. If this is the case, consider specialist referral to assess eligibility for a risk reducing agent. 2. If overall lifetime risk for the development of breast cancer is 20% or higher, the patient may qualify for future screening with alternating mammogram and breast MRI. [facility], , 04/07/2024 7:52 AM. Electronically signed and approved by: Giovanni Villalta M.D. Radiologis
== END ==
LOC: WWCWWP 07:35
PROVIDERS: ATTEND Obstetrics & Gynecology
DX: Z12.31 Encounter for screening mammogram for malignant neoplasm of breast (principal); Z78.0 Asymptomatic menopausal state
CPT/HCPCS: 77063; 77067

== ENCOUNTER → 2024-04-22 | Outpatient (CLI) | payer MEDICARE ==
--- NOTE | 2024-04-22 11:34 | P.PN ---
Subjective Progress Note Date: 04/22/24 Principal diagnosis: fibrocystic breast disease 04-22-24 fibroocystic breast changes The patient is a 73 year old seen initially in consultation for DR. Walsh who had a routine screening mammogram performed on 02-24-19 was noted to have a change in the left breast. Additional views were obtained on 03-09-19 and an ultrasound as well. A 0.6 cm lesion was noted at the 6 OClock position and a biopsy was recommended. She has had two open biopsies in the past in the left breast. These were both benign, one was a blocked milk duct. The other she does not know the results. She underwent an ultrasound core biopsy on 10-27-19. This was benign, c oncordant. She is not complaining of any lumps masses or nodules in her breast. She is not complaining of any nipple discharge or skin changes. She has had 2 open breast biopsies in the past. She has not had any trauma or infection in the breast. She had a bilateral mammogram on 04-06-24. This was BIRAD 2. This was personally interpreted. The patient does not feel any lumps masses or nodules of concern in either breast. Family History: brother: multiple myloma brother: prostate cancer father: prostate cancer maternal great aunt: ovarian cancer paternal aunt: breast cancer Hormonal: menarche: 14 , breast fed: yes: first born at 39 menopause: 55 BCP: none hormones: none Past Surgical History: 1. twice 2. open breast biopsy twice Medical History: diabetes HTN Social History: smoke: none alcohol: occasional drugs: none - Constitutional Constitutional: Denies chills, Denies fever - EENT Comment: wears glasses, epi-retinal membrane bilateral eyes, cataracts bilateral following Ears: deny: decreased hearing, tinnitus Ears, nose, mouth and throat: Denies headache, Denies sore throat - Breasts Breasts: bilateral: as per HPI - Cardiovascular Cardiovascular: Reports high blood pressure, Denies chest pain, Denies shortness of breath - Respiratory Respiratory: Denies cough - Gastrointestinal Comment: metformin some days cause diarrhea or constipation Gastrointestinal: Denies abdominal pain, Denies diarrhea, Denies nausea, Denies vomiting - Genitourinary (Female) Genitourinary: Denies dysuria, Denies hematuria - Menstruation Menstruation: Reports postmenopausal - Musculoskeletal Musculoskeletal: Denies myalgias - Integumentary Integumentary: Denies pruritus, Denies rash - Neurological Neurological: Denies numbness, Denies weakness - Psychiatric Psychiatric: Denies anxiety, Denies depression - Endocrine Comment: diabetes - Hematologic/Lymphatic Comment: baby aspirin - Allergic/Immunologic Allergic/Immunologic: Reports seasonal allergies Objective - Constitutional General appearance: Present: cooperative - EENT Eyes: Present: EOMI ENT: Present: hearing grossly normal - Neck Neck: Present: normal ROM - Respiratory Respiratory: bilateral: CTA - Cardiovascular Rhythm: regular Heart sounds: normal: S1, S2 - Integumentary Integumentary: Present: normal turgor - Musculoskeletal Musculoskeletal: Present: gait normal - Psychiatric Psychiatric: Present: A&O x's 3, appropriate affect, intact judgment & insight - Additional findings Additional findings: Breast Exam: BRA: 34B inspection: Bilateral grade 2 ptosis Palpation: Right breast: Multiple positional exam fibrocystic changes no dominant masses or nodules of concern Right axilla: No adenopathy of concern Left breast: Multi-positional exam fibrocystic changes no dominant masses or nodules of concern Left axilla: No adenopathy of concern Assessment and Plan Assessment: Impression: Bilateral fibrocystic breast changes Bilateral mammogram 04-06-24 BIRADS 2 Plan: bilateral mammogram March 2025 Repeat bilateral mammogram in 1 year with physician exam at that time Patient follow-up sooner any questions or concerns CC: Dr. Chapman, Dr. Segovia
[2024-04-22 11:44] VITALS: BP 130/80; PULSE 96; RESP 16; TEMP 97.1
== END ==
LOC: WWCWWP 10:06
PROVIDERS: ATTEND Surgery
DX: Z12.31 Encounter for screening mammogram for malignant neoplasm of breast (principal); N60.11 Diffuse cystic mastopathy of right breast; N60.12 Diffuse cystic mastopathy of left breast; R92.8 Other abnormal and inconclusive findings on diagnostic imaging of breast; Z80.3 Family history of malignant neoplasm of breast